=== PATIENT | female | born 1975 | race Caucasian/White ===

== ENCOUNTER 2025-04-16 20:33 | Emergency (ER) | payer MEDICAID, OTHER ==
[~2025-04-16] VITALS: Ht 170.2 cm; Wt 104.3 kg
[2025-04-16 21:00] VITALS: TEMP 98.2
[2025-04-16] MEDS ORDERED: HYDROCODONE/APAP 5/325MG TABLET ONE (22:29)
[2025-04-16] MEDS ORDERED: KETOROLAC TROMETHAMINE INJ 30 MG/ML VIAL ONE (22:29)
[2025-04-16] MEDS ORDERED: CYCLOBENZAPRINE 10 MG TABLET ONE (22:29)
[2025-04-16] MEDS: CYCLOBENZAPRINE 10 MG TABLET PO ONE (22:35)
[2025-04-16] MEDS: KETOROLAC TROMETHAMINE INJ 30 MG/ML VIAL IM ONE (22:35)
[2025-04-16] MEDS: HYDROCODONE/APAP 5/325MG TABLET PO ONE (22:35)
[2025-04-16] MEDS ORDERED: CYCL5TAB PO (22:36)
[2025-04-16 22:46] VITALS: BP 105/65; O2SAT 98
== END 2025-04-16 22:44 | disposition home or self-care (01) ==
LOC: ER 20:58 → EDBD 20:58 → ER 22:44
DX: M54.50 Low back pain, unspecified (principal)
CPT/HCPCS: 99283; 96372; J1885